=== PATIENT | male | born 1950 | race Caucasian/White ===

== ENCOUNTER 2017-08-13 08:54 | Inpatient (IN) | payer OTHER ==
[2017-08-13] VITALS (7 sets, daily range): BP systolic 110–146; BP diastolic 67–73; PULSE 74–92; TEMP 36.2–37.8; O2SAT 95–97; Ht 172.7 cm; Wt 84.5 kg
[~2017-08-13] VITALS: Ht 172.7 cm; Wt 84.5 kg
[~2017-08-13 08:54] MED LIST: CETI10TA84 PO; GLUCTAB18 PO; LISI-725 PO; MULT1CHW38 PO; OMEG10007 PO; Zyrtec PO
[2017-08-13] MEDS ORDERED: PANT40TA PO (09:22)
[2017-08-13] MEDS ORDERED: VORI1TAB9 (09:22)
[2017-08-13] MEDS ORDERED: ACYC-57 PO (09:22)
[2017-08-13] MEDS ORDERED: METR-163 PO (09:22)
[2017-08-13] MEDS ORDERED: MAGNESIUM HYDROXIDE SUSP 30 ML UDC PO PRN (10:00)
[2017-08-13] MEDS ORDERED: POLYETHYLENE (MIRALAX) 17 GM PACK PO PRN (10:00)
[2017-08-13] MEDS ORDERED: ONDANSETRON INJ 2 MG/ML 2 ML VIAL IV PRN (10:00)
[2017-08-13] MEDS ORDERED: VANCOMYCIN CONSULT ACTIVE PRN (10:15)
[2017-08-13] MEDS ORDERED: CEFEPIME IV 1,000 MG in SYRINGE 0 ML IV ONE (10:30)
[2017-08-13] MEDS ORDERED: PATIENT'S HEIGHT NEEDED SCH (10:30)
[2017-08-13 10:42] LABS: HEMATOCRIT 30.1 % (42-52); MEAN CELL VOLUME 96.5 fL (80-100); MEAN CORPUSCULAR HEMOGLOBIN 31.1 pg (25-34); MEAN CORPUSCULAR HGB CONC 32.2 g/dl (32-36); MEAN PLATELET VOLUME 10.9 fL (7.4-10.4); PLATELET COUNT 142 K/uL (130-400); RED BLOOD COUNT 3.12 M/uL (4.7-6.1); WHITE BLOOD COUNT 10.56 K/uL (4.8-10.8)
--- NOTE | 2017-08-13 10:49 | History and Physical ---
History & Physical Date & Time of Service: Aug 13, 2017 at 10:28 Chief Complaint: Sepsis Primary Care Physician: No Doctor, Assigned History of Present Illness Source: patient This is a 66 yo M with PMHx of AML, seasonal allergies and a previous R knee scope, diagnosed May 2017 and has completed 2 round of chemotherapy. He is scheduled for the third and final round of chemotherapy next Monday. The patient follows with Dr. Miller from [facility] and was last seen there on 08/10. During that visit he discussed having a bout of chills he experienced last Monday prior to the appointment but that this went away. Yesterday, he developed severe chills and had Tmax of 103.2, he then presented to the ER at [facility]. Upon transfer here he had a WBC of 4.7, neutrophils are 4.2, urine was clear per OSH reports. A CXR was also completed and is negative, the disc has been sent down to radiology to be uploaded. Past Medical/Surgical History AML Seasonal allergies Social History Smoking Status: Never Smoker Smokeless Tobacco Use: No Alcohol Use: none Drug Use: none Marital Status: Housing status: lives with family, lives with significant other Occupational Status: retired Immunizations History of Influenza Vaccine: Yes Influenza Vaccine Date: Aug 06, 2015 History of Tetanus Vaccine?: Unknown History of Pneumococcal: Yes Pneumococcal Date: Jul 27, 2015 History of Hepatitis B Vaccine: Unknown Allergies Coded Allergies: No Known Allergies (Unverified , 01/26/16) Home Medications Scheduled Acyclovir (Zovirax), 400 MG PO TID Cetirizine (Zyrtec), 10 MG PO DAILY Metronidazole (Flagyl), 500 MG PO TID Pantoprazole (Protonix), 40 MG PO DAILY Voriconazole (Vfend), 200 BID Review of Systems Constitutional: No fever, No chills, No sweats Eyes: No redness, No diplopia ENT: No sore throat, No trouble swallowing Respiratory: No shortness of breath, No dyspnea on exertion Cardiovascular: No chest pain, No edema, No claudication Abdomen: No pain, No nausea, No vomiting, No diarrhea Musculoskeletal: No joint pain, No swelling, No calf pain Genitourinary - Male: No hematuria, No dysuria Neurologic: No numbness/tingling Endocrine: No fatigue Integumentary: No rash, No itch Physical Exam Vital Signs Date Time Temp Pulse Resp B/P (MAP) Pulse Ox O2 Delivery O2 Flow Rate FiO2 08/13/17 09:35 97 Room Air 08/13/17 08:56 36.4 92 18 146/73 (97) 97 Room Air General Appearance: WD/WN, no apparent distress Head: normocephalic, atraumatic Eyes: PERRL, EOMI ENT: hearing grossly normal, pharynx normal, + pertinent finding (MM moist) Neck: supple, thyroid normal Respiratory/Chest: lungs clear, no respiratory distress Cardiovascular: regular rate, rhythm, + systolic murmur (grade II/ LSB 5th ICS) Abdomen/GI: normal bowel sounds, non tender, soft Back: normal inspection, no muscle spasm Extremities/Musculoskelatal: normal inspection, no calf tenderness, no pedal edema Neurologic/Psych: alert, normal mood/affect, oriented x 3 Skin: normal color, warm/dry Diagnostics Laboratory Results Results Past 24 Hours Test 08/13/17 10:22 Range/Units Microbiology Results 08/13/17 Blood Culture, Ordered Pending 08/13/17 Blood Culture, Ordered Pending CXR normal Impression Assessment and Plan This is a 66 yo M with PMHx of AML, seasonal allergies and a previous R knee scope, diagnosed May 2017 and has completed 2 round of chemotherapy. He is scheduled for the third and final round of chemotherapy next Monday. The patient follows with Dr. Miller from [facility] and was last seen there on 08/10. During that visit he discussed having a bout of chills he experienced last Monday prior to the appointment but that this went away. Yesterday, he developed severe chills and had Tmax of 103.2, he then presented to the ER at [facility]. Febrile Neutropenia in the setting of AML - Transferred from [facility] for febrile neutropenia but at this time appears to be resolving. Will continue neutropenic precautions until labs are back this morning. - Finished 2 cycles of chemotherapy, next scheduled on 08/18 - Pt had been started on vanc and cefepime at OSH, will continue. - Continue on voriconazole and acyclovir prophylactically. Hold Cipro and flagyl while IV abx on board. - Pt was told to stop Cipro by oncologist last , and told to continue flagyl x 1 more week (scheduled to finish on 08/17) - Rapid flu from OSH was negative - CXR was negative from OSH - disk sent to radiology - Urine clear from OSH - no urinary sx - WBC from 08/12 is 4.7, neutrophils are 4.2, rechecking lab work, as well as blood cultures - Oncology consulted, Dr. Coker - Pt follows with Dr. Miller as an outpatient. - Afebrile x 24 hours per pt report, feels very well - Chemisty panel from OSH on shows mild hypokalemia at 3.1, rechecking PRP - EKG from OSH initially showed sinus tachy, no other signs of ischemia - currently pt in NSR. DVT ppx: Ambulatory, PLT =141 but will hold other forms of chemical anticoagulation CODE STATUS: FULL CODE Disposition: From home, lives with and independent in ADLs, anticipate return home possibly tomorrow. i personally examined pt and verified all [place] points ifrah Covarrubias PAC feeling better at first, then rigors again. not neutropenic vitals noted nad breathing unlabored no pallor or icterus fever/immunocompromised from chemo but to our review of labs not seeing true neutropenia -vanco, cefepime pending cutlures, follow cultures from [facility], repeat cultures since rigors now -with no localizing s/s suspect either bacteremia or viral Level of Care Med/Surg Advanced Directives Existing Living Will: No Existing Power of Registrar Museum: No Resuscitation Status FULL RESUSCITATION VTE Prophylaxis VTE Risk Assessment Done? Y/N: Yes Risk Level: Low Given or contraindicated: Other Anticoagulation
[2017-08-13 10:53] LABS: INR 1.1 (0.9-1.1); PROTHROMBIN TIME (PATIENT) 12.3 SECONDS (9.0-12.0)
[2017-08-13] MEDS: VORICONAZOLE 200 MG TAB PO SCH ×2 (11:00→20:37)
[2017-08-13 11:08] LABS: BASO % 0.1 %; BASO ABS # 0.01 K/uL (0-0.2); COMPLETE YES; EOS % 0.1 %; IG% 0.3 %; LYMPH % 5.9 %; LYMPH ABS # 0.62 K/uL (1.2-3.4); MONO % 11.5 %; NEUT % 82.1 %; VACUOLIZATION 1+
[2017-08-13 11:15] LABS: BUN/CREATININE RATIO 17.3 (10-20); CALCIUM 8.7 mg/dl (8.5-10.1); CREATININE 0.71 mg/dl (0.60-1.40); POTASSIUM 3.5 mmol/L (3.5-5.1)
[2017-08-13] MEDS ORDERED: ACETAMINOPHEN 500 MG TAB PO STA (11:23)
[2017-08-13] MEDS ORDERED: ACETAMINOPHEN 500 MG TAB PO ONE (11:29)
[2017-08-13] MEDS ORDERED: ACETAMINOPHEN 325 MG TAB PO PRN (11:30)
[2017-08-13] MEDS: ENOXAPARIN 40 MG/0.4 ML SYR SQ SCH (11:47)
[2017-08-13] MEDS ORDERED: VANCOMYCIN INJ 2,000 MG in SODIUM CHLORIDE 0.9% 500ML 500 ML IV SCH (12:00)
--- NOTE | 2017-08-13 12:49 | Pharmacy Progress Note ---
Pharmacy Abx Initial Consult Date of Service Aug 13, 2017. Pharmacy Dosing Scope Date of Consult: 08/13/17 Consultation requested by: Reny Covarrubias PA-C Pharmacy is consulted to initiate Vancomycin IV/PO dosing therapy, order appropriate labs and adjust drug dose/frequency. Subjective The patient is a 66 year old male admitted on Aug 13, 2017 at 08:54. Objective Height (Feet): 5 Height (Inches): 8.00 Weight (Kilograms): 86.500 Vital Signs (Past 12Hrs) Vital Signs Past 12 Hours Date Time Temp Pulse Resp B/P (MAP) Pulse Ox O2 Delivery O2 Flow Rate FiO2 08/13/17 11:30 37.8 08/13/17 09:35 97 Room Air 08/13/17 08:56 36.4 92 18 146/73 (97) 97 Room Air Lab Results (24Hrs) Laboratory Tests (24 Hours) Test 08/13/17 10:22 White Blood Count 10.56 K/uL (4.8-10.8) Red Blood Count 3.12 M/uL (4.7-6.1) L Hemoglobin 9.7 g/dL (14.0-18.0) L Hematocrit 30.1 % (42-52) L Mean Corpuscular Volume 96.5 fL (80-100) Mean Corpuscular Hemoglobin 31.1 pg (25-34) Mean Corpuscular Hemoglobin Concent 32.2 g/dl (32-36) Platelet Count 142 K/uL (130-400) Mean Platelet Volume 10.9 fL (7.4-10.4) H Neutrophils (%) (Auto) 82.1 % Lymphocytes (%) (Auto) 5.9 % Monocytes (%) (Auto) 11.5 % Eosinophils (%) (Auto) 0.1 % Basophils (%) (Auto) 0.1 % Neutrophils # (Auto) 8.68 K/uL (1.4-6.5) H Lymphocytes # (Auto) 0.62 K/uL (1.2-3.4) L Monocytes # (Auto) 1.21 K/uL (0.11-0.59) H Eosinophils # (Auto) 0.01 K/uL (0-0.5) Basophils # (Auto) 0.01 K/uL (0-0.2) Micro Results Date/Time Source Procedure Growth Status 08/13/17 10:30 Blood Blood Culture Pending Received 08/13/17 10:22 Blood Blood Culture Pending Received Risk Factors for Resistance * Immunocompromised (recent chemotherapy) * Antimicrobial use within the last 90 days: for febrile neutropenia - treated with Cipro, Flagyl, Acyclovir and Voriconazole Assessment & Plan Assessment 66 year old male AML, recent chemotherapy and febrile neutropenia. Plan Vancomycin for treatment of Sepsis. Vancomycin IV * Loading dose: 2000 mg (23 mg/kg) started at 1200 today. * Maintenance dose: 1500 mg IV (17.3 mg/kg) every 12 hours * Goal trough level for Sepsis: 15 to 20 mcg/mL * Trough Vanco level ordered for 08/15 before dose at 1000. * Currently therapy is empiric for 48 hrs only. * Blood cultures pending, will need to extend therapy if they are positive. * Pt is also getting Cefepime 2 gm IV q12h. Pharmacy will continue to follow and will adjust dose/frequency as necessary. Thank you.
[2017-08-13] MEDS: ACYCLOVIR 200 MG CAP PO SCH ×2 (13:57→20:38)
[2017-08-13] MEDS: CEFEPIME IV 2,000 MG in SYRINGE 7.5 ML IV SCH (16:15)
[2017-08-13] MEDS ORDERED: CEFEPIME IV 2,000 MG in DEXTROSE 5% 100ML 100 ML IV SCH (21:00)
[2017-08-13] MEDS: VANCOMYCIN INJ 1,500 MG in SODIUM CHLORIDE 0.9% 500ML 500 ML IV SCH (22:11)
[2017-08-14] VITALS (7 sets, daily range): BP systolic 118–142; BP diastolic 69–80; PULSE 74–82; TEMP 36.2–36.8; O2SAT 94–98
[2017-08-14] MEDS: CEFEPIME IV 2,000 MG in SYRINGE 7.5 ML IV SCH ×2 (03:44→17:21)
[2017-08-14 05:50] LABS: BASO % 0.3 %; BASO ABS # 0.02 K/uL (0-0.2); COMPLETE YES; EOS % 0.4 %; HEMATOCRIT 29.7 % (42-52); IG% 0.5 %; LYMPH % 10.5 %; LYMPH ABS # 0.78 K/uL (1.2-3.4); MEAN CELL VOLUME 96.7 fL (80-100); MEAN CORPUSCULAR HEMOGLOBIN 30.9 pg (25-34); MEAN PLATELET VOLUME 10.3 fL (7.4-10.4); MONO % 11.9 %; NEUT % 76.4 %; PLATELET COUNT 131 K/uL (130-400); RED BLOOD COUNT 3.07 M/uL (4.7-6.1)
[2017-08-14 06:26] LABS: BUN/CREATININE RATIO 14.7 (10-20); CALCIUM 8.4 mg/dl (8.5-10.1); CREATININE 0.63 mg/dl (0.60-1.40); POTASSIUM 3.4 mmol/L (3.5-5.1)
[2017-08-14] MEDS ORDERED: CEFEPIME IV 1,000 MG in DEXTROSE 5% 100ML 100 ML IV SCH (08:00)
[2017-08-14] MEDS: VORICONAZOLE 200 MG TAB PO SCH ×2 (08:43→20:27)
[2017-08-14] MEDS: CETIRIZINE HCL 10 MG TAB PO SCH (08:43)
[2017-08-14] MEDS: ACYCLOVIR 200 MG CAP PO SCH ×3 (08:43→20:27)
[2017-08-14] MEDS: PANTOprazole SOD 40 MG TAB PO SCH (08:44)
--- NOTE | 2017-08-14 10:19 | Oncology Consultation ---
Oncology/Heme Consultation Date of Consultation: Aug 14, 2017. Attending Physician: Casey Diaz MD, PhD Reason for Consultation: Fever in a patient with a history of leukemia History of Present Illness Mr. 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 He was last seen in our clinic in January of this year. Since that time he has been seen and treated at the [facility] at [facility]. He reviews with me that he received 2 cycles of therapy that sound like it was induction therapy to be followed by bone marrow transplant. His last treatment was about 4-6 weeks ago. He presents now with fever and chills for 48 hours. He denies dysuria or shortness of breath cough abdominal pain. States he had some diarrhea on Monday. He denies any overt bleeding. Past Medical/Surgical History History of CMML/MDS Shaking chills Social History Smoking Status: Never Smoker Smokeless Tobacco Use: No Alcohol Use: none Drug Use: none Marital Status: Occupation Status: retired Allergies Coded Allergies: No Known Allergies (Unverified , 01/26/16) Home Medications Scheduled Acyclovir (Zovirax), 400 MG PO TID Cetirizine (Zyrtec), 10 MG PO DAILY Metronidazole (Flagyl), 500 MG PO TID Pantoprazole (Protonix), 40 MG PO DAILY Voriconazole (Vfend), 200 BID Current Inpatient Medications Current Inpatient Medications Medications (Trade) Dose Ordered Sig/Clarisse Route Start Time Stop Time Status Last Admin Dose Admin Enoxaparin Sodium (Lovenox Inj) 40 mg Q24H SQ 08/13/17 12:00 09/12/17 11:59 08/13/17 11:47 40 MG Magnesium Hydroxide (Milk Of Magnesia Susp) 30 ml Q6H PRN PO 08/13/17 10:00 09/12/17 09:59 Polyethylene (Miralax Powder Packet) 17 gm DAILY PRN PO 08/13/17 10:00 09/12/17 09:59 Ondansetron HCl (Zofran Inj) 4 mg Q6H PRN IV 08/13/17 10:00 09/12/17 09:59 Vancomycin HCl (Consult) 1 ea UD PRN N/A 08/13/17 10:15 09/12/17 10:14 Heparin Sodium (Porcine) (Heparin 10 Unit/ ml 5 ml Flush) 5 ml PRN PRN FLUSH 08/13/17 10:15 09/12/17 10:14 08/14/17 04:57 10 ML Acyclovir (Zovirax Cap) 400 mg TID PO 08/13/17 14:00 09/12/17 13:59 08/14/17 08:43 400 MG Cetirizine HCl (zyrTEC TAB) 10 mg DAILY PO 08/14/17 08:00 09/13/17 07:59 08/14/17 08:43 10 MG Pantoprazole Sodium (Protonix Tab) 40 mg DAILY PO 08/14/17 08:00 09/13/17 07:59 08/14/17 08:44 40 MG Voriconazole (Vfend Tab) 200 mg BID PO 08/13/17 11:00 09/12/17 10:59 08/14/17 08:43 200 MG Acetaminophen (Tylenol Tab) 650 mg Q4H PRN PO 08/13/17 11:30 09/12/17 11:29 Cefepime HCl 2000 mg/Syringe 20 ml @ 5 mls/min Q12H IV 08/13/17 16:00 08/15/17 15:59 08/14/17 03:44 5 MLS/MIN Vancomycin HCl 1500 mg/Sodium Chloride 530 ml @ 200 mls/hr Q12H IV 08/13/17 22:00 08/15/17 21:59 08/13/17 22:11 200 MLS/HR Review of Systems Constitutional: Negative for weight loss, night sweats, or fever Eyes: Negative for event change of vision ENT: Negative for epistaxis, nasal discharge, sore throat, or deafness Cardiovascular: Negative for chest pain, palpitations, dizziness, diaphoresis Respiratory: Negative for new shortness of breath,hemoptysis, or purulent cough Gastrointestinal: Negative for hematemesis, melena, nausea, vomiting, or dyspepsia Integumentary (skin): Negative for rash or jaundice discoloration Genitourinary: Negative for urinary frequency, hematuria, or dysuria Neurological: Negative for weakness, seizure activity, headache, or dizziness Lymphatic/Hematologic: Negative for petechiae, bleeding or new adenopathy Musculoskeletal: Negative for new joint or back pain Allergic/Immunologic: Negative for unusual rash or pruritis. Physical Exam Date Time Temp Pulse Resp B/P (MAP) Pulse Ox O2 Delivery O2 Flow Rate FiO2 08/14/17 07:21 36.2 81 18 131/76 (94) 96 Room Air 08/14/17 04:51 36.2 82 20 118/72 (87) 94 Room Air 08/13/17 22:52 36.2 74 20 133/70 (91) 97 Room Air 08/13/17 20:00 95 Room Air 08/13/17 18:24 36.9 81 18 110/67 (81) 95 Room Air 08/13/17 16:00 Room Air 08/13/17 15:26 36.7 91 111/70 (84) 96 Room Air 08/13/17 11:30 37.8 Constitutional: vitals are stable. He does not appear in any distress. Eyes: Eyes are JOSE EOMI without conjuctival erythema or icterus. ENT: External examination was negative for masses. Neck: Negative for masses or palpable thyromegaly Respiratory: Lung sounds were generally clear bilaterally Cardiovascular: Heart was RRR without significant murmur, gallops aoe rubs Gastrointestinal: No palpable hepatic or splenomegaly. The abdomen was soft with normal bowel sounds. Lymphatic system: there was no palpable peripheral lymphadenopathy Musculoskeletal System: The musculoskeletal system seemed concordant with age. Skin: The skin was negative for jaundice. Neurologic exam: The exam was negative for any focal findings. Deep tendon reflexes were equal and symmetrical. Psychiatric exam: Was essentially negative with normal mood and effect. Extremities: Negative for edema erythema Laboratory Results Last 24 Hours Test 08/13/17 10:22 08/14/17 05:01 White Blood Count 10.56 K/uL 7.40 K/uL Red Blood Count 3.12 M/uL 3.07 M/uL Hemoglobin 9.7 g/dL 9.5 g/dL Hematocrit 30.1 % 29.7 % Mean Corpuscular Volume 96.5 fL 96.7 fL Mean Corpuscular Hemoglobin 31.1 pg 30.9 pg Mean Corpuscular Hemoglobin Concent 32.2 g/dl 32.0 g/dl Platelet Count 142 K/uL 131 K/uL Mean Platelet Volume 10.9 fL 10.3 fL Neutrophils (%) (Auto) 82.1 % 76.4 % Lymphocytes (%) (Auto) 5.9 % 10.5 % Monocytes (%) (Auto) 11.5 % 11.9 % Eosinophils (%) (Auto) 0.1 % 0.4 % Basophils (%) (Auto) 0.1 % 0.3 % Neutrophils # (Auto) 8.68 K/uL 5.65 K/uL Lymphocytes # (Auto) 0.62 K/uL 0.78 K/uL Monocytes # (Auto) 1.21 K/uL 0.88 K/uL Eosinophils # (Auto) 0.01 K/uL 0.03 K/uL Basophils # (Auto) 0.01 K/uL 0.02 K/uL RDW Standard Deviation 69.3 fL 67.8 fL RDW Coefficient of Variation 19.6 % 19.3 % Immature Granulocyte % (Auto) 0.3 % 0.5 % Immature Granulocyte # (Auto) 0.03 K/uL 0.04 K/uL Toxic Vacuolation 1+ Prothrombin Time 12.3 SECONDS Prothromb Time International Ratio 1.1 Sodium Level 138 mmol/L 140 mmol/L Potassium Level 3.5 mmol/L 3.4 mmol/L Chloride Level 105 mmol/L 105 mmol/L Carbon Dioxide Level 26 mmol/L 29 mmol/L Anion Gap 7.0 mmol/L 6.0 mmol/L Blood Urea Nitrogen 12 mg/dl 9 mg/dl Creatinine 0.71 mg/dl 0.63 mg/dl Est Creatinine Clear Calc Drug Dose 108.0 ml/min 121.7 ml/min Estimated GFR () 112.5 118.2 Estimated GFR (Non- 97.1 102.0 BUN/Creatinine Ratio 17.3 14.7 Random Glucose 121 mg/dl 138 mg/dl Calcium Level 8.7 mg/dl 8.4 mg/dl Assessment & Plan Patient with a history of CMML\MDS that then developed what appeared to be more of an acute leukemia. He is status post 2 cycles of therapy type unknown but appears to be an induction type therapy in preparation for eventual marrow transplant. His therapy has been carried out at [facility]. He is last treatment was 4-6 weeks ago. He presents now shaking chills without any overt source for an infection. He does have a PICC line in place in the left arm that has been there since April. His blood counts actually look quite good. I would recommend chest x-ray and abdominal ultrasound as part of his workup. Cultures are pending and we will follow with you.
[2017-08-14] MEDS: VANCOMYCIN INJ 1,500 MG in SODIUM CHLORIDE 0.9% 500ML 500 ML IV SCH ×2 (10:25→22:09)
[2017-08-14] MEDS: ENOXAPARIN 40 MG/0.4 ML SYR SQ SCH (14:16)
--- NOTE | 2017-08-14 16:05 | DIAGNOSTIC IMAGING REPORT ---
CHEST 2 VIEWS ROUTINE CLINICAL HISTORY: history of leukemia with shaking chills COMPARISON STUDY: 08/12/2017 outside study FINDINGS: The cardiac images so contours remain stable. There is a left-sided PICC catheter which appears to terminate within the superior vena cava. There are stable subtle lingular airspace opacities. These could be atelectatic or inflammatory. No pleural effusions are visualized. There is no failure. IMPRESSION: Stable subtle lingular airspace opacities, atelectatic versus inflammatory. Electronically signed by: Flaquito Augustin M.D. 08/14/2017 4:04 PM Dictated Date/Time: 08/14/2017 4:03 PM
--- NOTE | 2017-08-14 16:09 | Progress Note ---
Subjective Date of Service: Aug 14, 2017. Subjective Pt evaluation today including: conversation w/ patient, physical exam, chart review, lab review, review of studies, conversation w/ web consultant, review of inpatient medication list MAXIMUM TEMPERATURE 37.8 after admission, patient is up and walk, feeling better , no other complaint, Review of Systems Constitutional: + weakness, + fatigue, No fever, No chills, No sweats, No weight loss, No problem reported Eyes: No worsening of vision, No eye pain, No redness, No discharge, No diplopia ENT: No hearing loss, No unusual epistaxis, No nasal symptoms, No sore throat, No tinnitus, No dental problems, No trouble swallowing Respiratory: No cough, No sputum, No wheezing, No shortness of breath, No dyspnea on exertion, No dyspnea at rest, No hemoptysis Cardiac: No chest pain, No orthopnea, No PND, No edema, No claudication, No palpitations Abdomen: No pain, No nausea, No vomiting, No diarrhea, No constipation Musculoskeletal: No joint pain, No muscle pain, No swelling, No calf pain Male : No dysuria, No urinary frequency, No incontinence, No nocturia more than once/night, No slowing stream, No hematuria Neurologic: No memory loss, No paralysis, No weakness, No numbness/tingling, No vertigo, No balance problems Psychiatric: No depression symptoms, No anhedonism, No anxiety, No insomnia, No substance abuse Heme: No abnormal bleeding/bruising, No clotting problems, No swollen lymph nodes, No night sweats Endo: No fatigue, No excessive thirst, No excessive urination Skin: No rash, No itch, No new/changing skin lesions, No color change, No bleeding Objective Vital Signs Date Time Temp Pulse Resp B/P (MAP) Pulse Ox O2 Delivery O2 Flow Rate FiO2 08/14/17 15:43 36.4 78 18 123/70 (87) 97 Room Air 08/14/17 11:12 36.8 77 18 123/69 (87) 98 Room Air 08/14/17 08:00 96 Room Air 08/14/17 07:21 36.2 81 18 131/76 (94) 96 Room Air 08/14/17 04:51 36.2 82 20 118/72 (87) 94 Room Air 08/13/17 22:52 36.2 74 20 133/70 (91) 97 Room Air 08/13/17 20:00 95 Room Air 08/13/17 18:24 36.9 81 18 110/67 (81) 95 Room Air Physical Exam General Appearance: WD/WN, no apparent distress Eyes: normal inspection, PERRL, EOMI, sclerae normal ENT: normal ENT inspection, hearing grossly normal, pharynx normal Neck: supple, no adenopathy, thyroid normal, no JVD, no carotid bruits, trachea midline Respiratory/Chest: chest non-tender, lungs clear, normal breath sounds, no respiratory distress, no accessory muscle use Cardiovascular: regular rate, rhythm, no edema, no gallop, no JVD, no murmur Abdomen: normal bowel sounds, non tender, soft, no organomegaly, no pulsatile mass Extremities: normal range of motion, non-tender, normal inspection, no pedal edema, no calf tenderness, normal capillary refill, pelvis stable Neurologic/Psychiatric: purchasing officer II-XII nml as tested, no motor/sensory deficits, alert, normal mood/affect, oriented x 3 Skin: normal color, warm/dry, no rash Lymphatic: no adenopathy Laboratory Results Last 24 Hours Test 08/14/17 05:01 White Blood Count 7.40 K/uL Red Blood Count 3.07 M/uL Hemoglobin 9.5 g/dL Hematocrit 29.7 % Mean Corpuscular Volume 96.7 fL Mean Corpuscular Hemoglobin 30.9 pg Mean Corpuscular Hemoglobin Concent 32.0 g/dl Platelet Count 131 K/uL Mean Platelet Volume 10.3 fL Neutrophils (%) (Auto) 76.4 % Lymphocytes (%) (Auto) 10.5 % Monocytes (%) (Auto) 11.9 % Eosinophils (%) (Auto) 0.4 % Basophils (%) (Auto) 0.3 % Neutrophils # (Auto) 5.65 K/uL Lymphocytes # (Auto) 0.78 K/uL Monocytes # (Auto) 0.88 K/uL Eosinophils # (Auto) 0.03 K/uL Basophils # (Auto) 0.02 K/uL RDW Standard Deviation 67.8 fL RDW Coefficient of Variation 19.3 % Immature Granulocyte % (Auto) 0.5 % Immature Granulocyte # (Auto) 0.04 K/uL Sodium Level 140 mmol/L Potassium Level 3.4 mmol/L Chloride Level 105 mmol/L Carbon Dioxide Level 29 mmol/L Anion Gap 6.0 mmol/L Blood Urea Nitrogen 9 mg/dl Creatinine 0.63 mg/dl Est Creatinine Clear Calc Drug Dose 121.7 ml/min Estimated GFR () 118.2 Estimated GFR (Non- 102.0 BUN/Creatinine Ratio 14.7 Random Glucose 138 mg/dl Calcium Level 8.4 mg/dl Hepatitis C Antibody Screen NEG Assessment and Plan 66 yo M with with history of leukemia with recent chemotherapy was 4 weeks ago transferred from [facility] because of developing severe chills and had Tmax of 103.2, Febrile Neutropenia in the setting of AML and recent chemotherapy Finished 2 cycles of chemotherapy, next scheduled on 08/18 Oncology saw patient, on vanc and cefepime at OSH, will continue. Continue on voriconazole and acyclovir prophylactically Stable and improving - Rapid flu from OSH was negative - CXR was negative from OSH - disk sent to radiology - Urine clear from OSH - no urinary sx Oncology consulted, Dr. Coker Oncology saw patient, recommended repeat a chest x-ray and ultrasound which is doing, we'll follow-up results PMHx of AML, seasonal allergies and a previous R knee scope Possible discharge home tomorrow DVT ppx: Ambulatory, Heparin per duct CODE STATUS: FULL CODE Continued [facility] stay due to: multiple IV medications needed Discharge planning: home
--- NOTE | 2017-08-14 16:10 | DIAGNOSTIC IMAGING REPORT ---
ABDOMEN COMPLETE (US) HISTORY: Fever. Infection. History of leukemia with shaking chills. COMPARISON: None. FINDINGS: Pancreas: The pancreas demonstrates a normal echotexture. Liver: Several benign calcifications of the liver. Liver pattern is otherwise uniform in Gallbladder: Moderately contracted without the degree of mild gallbladder wall prominence at 3.5 mm. No pericholecystic fluid. No shadowing gallstones. CBD: 6 mm Kidneys: No hydronephrosis. Spleen: 11 cm maximum dimension. Uniform echogenicity. Aorta: Normal in caliber. IVC: Patent. IMPRESSION: 1. Mildly contracted gallbladder with subtle wall thickening. 2. No evidence for shadowing gallstones or biliary ductal distention. 3. Several benign-appearing hepatic granulomas. The above report was generated using voice recognition software. It may contain grammatical, syntax or spelling errors. Electronically signed by: Yordan Rivas M.D. 08/14/2017 4:09 PM Dictated Date/Time: 08/14/2017 4:07 PM
[2017-08-14 22:56] LABS: MANUAL MICROSCOPIC REQUIRED? YES; URINE APPEARANCE CLEAR (CLEAR); URINE BILIRUBIN NEG (NEG); URINE COLOR YELLOW; URINE NITRITE NEG (NEG); URINE PH 6.5 (4.5-7.5); UROBILINOGEN NEG (NEG)
[2017-08-14 23:00] LABS: REVIEW REQ? NO
[2017-08-14 23:10] LABS: URINE BACTERIA NEG (NEG); URINE RBC 0-4 /hpf (0-4)
[2017-08-15] VITALS: O2SAT 95
[2017-08-15 00:12] VITALS: BP 129/75; PULSE 74; TEMP 36.4; O2SAT 97
[2017-08-15] MEDS: CEFEPIME IV 2,000 MG in SYRINGE 7.5 ML IV SCH (04:07)
[2017-08-15 04:38] VITALS: BP 138/79; PULSE 72; TEMP 36.2; O2SAT 97
[2017-08-15 05:25] LABS: BASO % 0.5 %; BASO ABS # 0.02 K/uL (0-0.2); COMPLETE YES; EOS % 0.7 %; HEMATOCRIT 30.4 % (42-52); IG% 1.4 %; LYMPH % 22.9 %; MEAN CELL VOLUME 96.2 fL (80-100); MEAN CORPUSCULAR HGB CONC 32.2 g/dl (32-36); MEAN PLATELET VOLUME 10.7 fL (7.4-10.4); MONO % 16.5 %; PLATELET COUNT 138 K/uL (130-400); RED BLOOD COUNT 3.16 M/uL (4.7-6.1); WHITE BLOOD COUNT 4.37 K/uL (4.8-10.8)
[2017-08-15 06:04] LABS: BUN/CREATININE RATIO 17.1 (10-20); CALCIUM 8.7 mg/dl (8.5-10.1); CREATININE 0.69 mg/dl (0.60-1.40); MAGNESIUM 2.2 mg/dl (1.8-2.4); POTASSIUM 3.6 mmol/L (3.5-5.1)
[2017-08-15 07:30] VITALS: BP 144/82; PULSE 76; TEMP 36.3; O2SAT 99
[2017-08-15] MEDS: CETIRIZINE HCL 10 MG TAB PO SCH (08:11)
[2017-08-15] MEDS: PANTOprazole SOD 40 MG TAB PO SCH (08:11)
[2017-08-15] MEDS: ACYCLOVIR 200 MG CAP PO SCH (08:11)
[2017-08-15] MEDS: VORICONAZOLE 200 MG TAB PO SCH (08:11)
[2017-08-15] MEDS ORDERED: VANCOMYCIN TROUGH ONE (09:30)
--- NOTE | 2017-08-15 10:22 | Discharge Instructions ---
Discharge Instructions Date of Service Aug 15, 2017. Admission Reason for Admission: Sepsis Discharge Discharge Diagnosis / Problem: Fever, viral illness Discharge Goals Goal(s): Decrease discomfort, Diagnostic testing Activity Recommendations Activity Limitations: resume your previous activity . Instructions / Follow-Up Instructions / Follow-Up You were admitted to the hospital after presenting with fevers and chills. You were started on empiric IV antibiotics. You have not had any high fevers since being admitted. 2 sets of blood cultures are negative, and your chest x-ray, abdominal ultrasound, and urine are all negative for infection. Your fevers were likely due to a viral process that has already run its course. You are now medically stable for discharge. Medications: *Resume your home medications, please take as prescribed. Follow up: *You will be scheduled to follow up with your primary care provider in 2 weeks. *Please maintain your previously scheduled appointments with oncology. Please seek medical attention if you experience fevers, chills, sweats, dizziness/lightheadedness, loss of consciousness, chest pain, shortness of breath, nausea, vomiting, numbness or tingling. Current Hospital Diet Patient's current hospital diet: Regular Diet Discharge Diet Recommended Diet: Regular Diet Pending Studies Studies pending at discharge: no Medical Emergencies . Who to Call and When: Medical Emergencies: If at any time you feel your situation is an emergency, please call 911 immediately. . Non-Emergent Contact Non-Emergency issues call your: Primary Care Provider, Oncologist Call Non-Emergent contact if: you have a fever, you have any medication questions . Past History Medical & Surgical History: (1) Fever (2) Viral illness . "Provider Documentation" section prepared by Maggi Villalta. . VTE Core Measure Inpt VTE Proph given/why not?: Enoxaparin (Lovenox)SQ
--- NOTE | 2017-08-15 10:38 | Discharge Summary ---
Discharge Summary Date of Service Aug 15, 2017. Discharge Summary Admission Date: Aug 13, 2017 at 08:54 Discharge Date: Aug 15, 2017 Discharge Disposition: Home Principal Diagnosis: Fever, viral illness Immunizations: Have You Had Influenza Vaccine: Yes Influenza Vaccine Date: Aug 06, 2015 History of Tetanus Vaccine?: Unknown History of Pneumococcal: Yes Pneumococcal Date: Jul 27, 2015 History of Hepatitis B Vaccine: Unknown Procedures: CHEST 2 VIEWS ROUTINE CLINICAL HISTORY: history of leukemia with shaking chills COMPARISON STUDY: 08/12/2017 outside study FINDINGS: The cardiac images so contours remain stable. There is a left-sided PICC catheter which appears to terminate within the superior vena cava. There are stable subtle lingular airspace opacities. These could be atelectatic or inflammatory. No pleural effusions are visualized. There is no failure. IMPRESSION: Stable subtle lingular airspace opacities, atelectatic versus inflammatory. ABDOMEN COMPLETE (US) HISTORY: Fever. Infection. History of leukemia with shaking chills. COMPARISON: None. FINDINGS: Pancreas: The pancreas demonstrates a normal echotexture. Liver: Several benign calcifications of the liver. Liver pattern is otherwise uniform in Gallbladder: Moderately contracted without the degree of mild gallbladder wall prominence at 3.5 mm. No pericholecystic fluid. No shadowing gallstones. CBD: 6 mm Kidneys: No hydronephrosis. Spleen: 11 cm maximum dimension. Uniform echogenicity. Aorta: Normal in caliber. IVC: Patent. IMPRESSION: 1. Mildly contracted gallbladder with subtle wall thickening. 2. No evidence for shadowing gallstones or biliary ductal distention. 3. Several benign-appearing hepatic granulomas. Consultations: Oncology Medication Reconciliation Continued Medications: Acyclovir (Zovirax) 200 Mg Cap 400 MG PO TID, CAP take until ANC >500 Cetirizine (Zyrtec) 10 Mg Tab 10 MG PO DAILY, TAB Metronidazole (Flagyl) 500 Mg Tab 500 MG PO TID, TAB Pantoprazole (Protonix) 40 Mg Tab 40 MG PO DAILY, #30 TAB Voriconazole (Vfend) 200 Mg Tab 200 BID Discharge Exam Patient reports feeling well, denies any complaints. He is eager to be discharged home. The patient denies fevers, chills, sweats, chest pain, palpitations, claudication, cough, wheezing, shortness of breath, nausea, vomiting, abdominal pain, dysuria, hematuria, urinary retention, paralysis, weakness, numbness and tingling. Review of Systems: Constitutional: No fever, No chills, No sweats, No weakness, No fatigue Eyes: No worsening of vision, No eye pain, No diplopia ENT: No hearing loss, No nasal symptoms, No trouble swallowing Respiratory: No cough, No wheezing, No shortness of breath Cardiovascular: No chest pain, No claudication, No palpitations Abdomen: No pain, No nausea, No vomiting, No diarrhea Musculoskeletal: No joint pain, No muscle pain, No calf pain Genitourinary - Male: No hematuria, No dysuria, No urinary retention Neurologic: No paralysis, No weakness, No numbness/tingling Integumentary: No rash, No itch, No color change Physical Exam: General Appearance: WD/WN, no apparent distress Eyes: normal inspection, PERRL, EOMI ENT: normal ENT inspection, hearing grossly normal, pharynx normal Neck: supple, no JVD, trachea midline Respiratory/Chest: lungs clear, normal breath sounds, no respiratory distress Cardiovascular: regular rate, rhythm, no gallop, no murmur Abdomen / GI: normal bowel sounds, non tender, soft Extremities: normal inspection, no calf tenderness, no pedal edema Neurologic/Psychiatric: alert, normal mood/affect, oriented x 3 Skin: normal color, warm/dry, no rash Hospital Course 66 y/o male with a 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 The patient just finished last chemo 4-6 weeks ago and is scheduled for a third round on 08/18. Anticipated to have bone marrow transplant in September. Follows w/Dr. Miller at [facility] and Dr. Mason locally. Pt has been having chills with Tmax 103.2F, as well as diarrhea. Fever likely secondary to viral illness--resolved. Pt did initially have some diarrhea which has since resolved, likely viral - Transferred [facility] for fevers but at this time appears to be resolving. No evidence of neutropenia - Empiric vanc and cefepime had been start at [facility] - Pt's home voriconazole and acyclovir continued - Home Cipro and Flagyl held - Rapid flu at [facility] negative - Pt was told to stop Cipro by oncologist last , and told to continue flagyl x 1 more week (scheduled to finish on 08/17) - Rapid flu from OSH was negative - CXR negative - UA negative - Blood cultures both at [facility] and [facility] negative - Oncology consulted, appreciate recs: ok for discharge, likely viral process - No true fevers since admission AML -Continue with scheduled chemo 08/18 and f/u with Dr. Mason and Dr. Miller Seasonal allergies -Continue Zyrtec 10 mg PO qd GERD -Continue Protonix 40 mg PO qd DVT prophylaxis -Enoxaparin 40 mg SC q24h Total Time Spent: Greater than 30 minutes This includes examination of the patient, discharge planning, medication reconciliation, and communication with other providers. Discharge Instructions Please refer to the electronic Patient Visit Report (Discharge Instructions) for additional information. Additional Copies To Bhanu Yousif M.D.
--- NOTE | 2017-08-15 10:56 | Hematology/Oncology Prog Note ---
Hematology/Onc Progress Note Date of Service Aug 15, 2017. Diagnoses History of myeloid leukemia/CMML Medications Medications Administered Medications (Trade) Dose Ordered Sig/Clarisse Route Start Time Stop Time Status Last Admin Dose Admin Enoxaparin Sodium (Lovenox Inj) 40 mg Q24H SQ 08/13/17 12:00 09/12/17 11:59 08/14/17 14:16 40 MG Vancomycin HCl 2000 mg/Sodium Chloride 540 ml @ 200 mls/hr 1200 IV 08/13/17 12:00 08/13/17 14:41 DC 08/13/17 11:47 200 MLS/HR Heparin Sodium (Porcine) (Heparin 10 Unit/ ml 5 ml Flush) 5 ml PRN PRN FLUSH 08/13/17 10:15 09/12/17 10:14 08/15/17 05:04 5 ML Cefepime HCl 1000 mg/Syringe 11 ml @ 5.5 mls/min NOW ONCE IV 08/13/17 10:30 08/13/17 10:31 DC 08/13/17 11:07 5.5 MLS/MIN Acyclovir (Zovirax Cap) 400 mg TID PO 08/13/17 14:00 09/12/17 13:59 08/15/17 08:11 400 MG Cetirizine HCl (zyrTEC TAB) 10 mg DAILY PO 08/14/17 08:00 09/13/17 07:59 08/15/17 08:11 10 MG Pantoprazole Sodium (Protonix Tab) 40 mg DAILY PO 08/14/17 08:00 09/13/17 07:59 08/15/17 08:11 40 MG Voriconazole (Vfend Tab) 200 mg BID PO 08/13/17 11:00 09/12/17 10:59 08/15/17 08:11 200 MG Acetaminophen (Tylenol Tab) 1,000 mg NOW STAT PO 08/13/17 11:23 08/13/17 11:29 DC 08/13/17 11:30 1,000 MG Cefepime HCl 2000 mg/Syringe 20 ml @ 5 mls/min Q12H IV 08/13/17 16:00 08/15/17 10:17 DC 08/15/17 04:07 5 MLS/MIN Vancomycin HCl 1500 mg/Sodium Chloride 530 ml @ 200 mls/hr Q12H IV 08/13/17 22:00 08/15/17 10:17 DC 08/14/17 22:09 200 MLS/HR Subjective He has a negative review of systems bed. Is been afebrile. Blood work thus far is unrevealing as have been the ultrasound of the abdomen and chest x-ray. Review of Systems: Constitutional: Negative for weight loss, night sweats, or fever Eyes: Negative for event change of vision ENT: Negative for epistaxis, nasal discharge, sore throat, or deafness Cardiovascular: Negative for chest pain, palpitations, dizziness, diaphoresis Respiratory: Negative for new shortness of breath,hemoptysis, or purulent cough Gastrointestinal: Negative for diarrhea, hematemesis, melena, nausea, vomiting , or dyspepsia Integumentary (skin): Negative for rash or jaundice discoloration Vital Signs Vital Signs Past 12 Hours Date Time Temp Pulse Resp B/P (MAP) Pulse Ox O2 Delivery O2 Flow Rate FiO2 08/15/17 08:00 Room Air 08/15/17 07:30 36.3 76 18 144/82 (102) 99 Room Air 08/15/17 04:38 36.2 72 18 138/79 (98) 97 Room Air 08/15/17 00:12 36.4 74 20 129/75 (93) 97 Room Air 08/15/17 00:00 95 Room Air Physical Exam Constitutional: vitals are stable. Respiratory: Lung sounds were generally clear bilaterally Cardiovascular: Heart was RRR without significant murmur, gallops aoe rubs Neurologic exam: The exam was negative for any focal findings. Deep tendon reflexes were equal and symmetrical. Psychiatric exam: Was essentially negative with normal mood and effect. Laboratory Last 24 Hours Test 08/14/17 22:30 08/15/17 05:03 08/15/17 09:38 Urine Color YELLOW Urine Appearance CLEAR Urine pH 6.5 Urine Specific [place] 1.010 Urine Protein NEG Urine Glucose (UA) NEG Urine Ketones NEG Urine Occult Blood TRACE Urine Nitrite NEG Urine Bilirubin NEG Urine Urobilinogen NEG Urine Leukocyte Esterase NEG Urine RBC 0-4 /hpf Urine WBC 1-5 /hpf Urine Epithelial Cells 0-5 /lpf Urine Bacteria NEG White Blood Count 4.37 K/uL Red Blood Count 3.16 M/uL Hemoglobin 9.8 g/dL Hematocrit 30.4 % Mean Corpuscular Volume 96.2 fL Mean Corpuscular Hemoglobin 31.0 pg Mean Corpuscular Hemoglobin Concent 32.2 g/dl Platelet Count 138 K/uL Mean Platelet Volume 10.7 fL Neutrophils (%) (Auto) 58.0 % Lymphocytes (%) (Auto) 22.9 % Monocytes (%) (Auto) 16.5 % Eosinophils (%) (Auto) 0.7 % Basophils (%) (Auto) 0.5 % Neutrophils # (Auto) 2.54 K/uL Lymphocytes # (Auto) 1.00 K/uL Monocytes # (Auto) 0.72 K/uL Eosinophils # (Auto) 0.03 K/uL Basophils # (Auto) 0.02 K/uL RDW Standard Deviation 66.6 fL RDW Coefficient of Variation 19.0 % Immature Granulocyte % (Auto) 1.4 % Immature Granulocyte # (Auto) 0.06 K/uL Sodium Level 140 mmol/L Potassium Level 3.6 mmol/L Chloride Level 105 mmol/L Carbon Dioxide Level 29 mmol/L Anion Gap 6.0 mmol/L Blood Urea Nitrogen 12 mg/dl Creatinine 0.69 mg/dl Est Creatinine Clear Calc Drug Dose 110.7 ml/min Estimated GFR () 113.9 Estimated GFR (Non- 98.2 BUN/Creatinine Ratio 17.1 Random Glucose 139 mg/dl Calcium Level 8.7 mg/dl Magnesium Level 2.2 mg/dl Vancomycin Level Trough 11.2 mcg/ml Assessment & Plan Blood work is a stable as is are the x-rays. I suspect he can be discharged. He has a follow-up in the very near future at [facility]
[2017-08-15 11:09] VITALS: BP 144/82; PULSE 76; TEMP 36.3; O2SAT 99
[2017-08-15 11:20] VITALS: BP 133/74; PULSE 81; TEMP 36.4; O2SAT 98
[2017-08-15] MEDS: ENOXAPARIN 40 MG/0.4 ML SYR SQ SCH (12:00)
== END 2017-08-15 12:57 | disposition home health service (06) | DRG 866 ==
LOC: C.4E 08:54
PROVIDERS: ADMIT Internal Medicine; ATTEND Hospitalist
DX: B34.9 Viral infection, unspecified (principal); C92.50 Acute myelomonocytic leukemia, not having achieved remission; D70.9 Neutropenia, unspecified; J30.2 Other seasonal allergic rhinitis; K21.9 Gastro-esophageal reflux disease without esophagitis